=== PATIENT | female | born 2000 | race African-American/Black ===

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

== ENCOUNTER 2022-06-07 11:04 | Emergency (ER) | payer MEDICAID, OTHER ==
[~2022-06-07] VITALS: Ht 165.1 cm; Wt 89.0 kg
[~2022-06-07 11:04] MED LIST changes: -FOLI0.4T6 PO
[2022-06-07] MEDS ORDERED: ONDANSETRON HCL 4MG/2ML INJ IV STA (11:13)
[2022-06-07 11:15] VITALS: BP 116/60
[2022-06-07] MEDS ORDERED: SODIUM CHLORIDE 0.9% 1,000 ML IV ONE (11:15)
[2022-06-07 12:23] LABS: BASOPHILS % 0.7 % (0.0-2.0); EOSINOPHILS % 0.4 % (0.0-5.0); HEMATOCRIT. 55.1 % (36.0-48.0); HEMOGLOBIN. 18.8 g/dL (12.0-16.0); LYMPHOCYTES % 23.5 % (20.0-50.0); MEAN CORPUSCULAR HEMOGLOBIN 29.1 pg (28.0-32.0); MEAN CORPUSCULAR VOLUME 85.4 fL (81.0-99.0); MEAN PLATELET VOLUME 8.5 fl (7.4-10.4); MONOCYTES % 10.4 % (2.0-8.0); PLATELET 393 x1000/uL (130-400); RED BLOOD CELL COUNT 6.46 mill/uL (4.2-5.4); RED CELL DISTRIBUTION WIDTH 13.1 % (11.6-14.6)
[2022-06-07 12:53] LABS: CHLORIDE 99 mEq/L (98-107)
[2022-06-07 12:55] LABS: HCG SCREEN NEGATIVE
[2022-06-07 12:59] LABS: ETHANOL BLOOD < 10 mg/dL
[2022-06-07] MEDS ORDERED: IBUPROFEN 600MG TABLET PO ONE (15:00)
[2022-06-07 15:44] LABS: CLARITY URINE TURBID (CLEAR); COLOR URINE DARK YELLOW (YELLOW); KETONES URINE NEGATIVE (NEGATIVE); LEUKOCYTE ESTERASE URINE TRACE (NEGATIVE); NITRITE URINE NEGATIVE (NEGATIVE); OCCULT BLOOD URINE 2+ (NEGATIVE); PH URINE 6.5 (4.5-8.0); PROTEIN URINE 4+ (NEGATIVE); SPECIFIC GRAVITY URINE 1.079 (1.005-1.030)
[2022-06-07 15:56] LABS: *AMPHETAMINES SCREEN URINE NEGATIVE (NEGATIVE); *BARBITURATES SCREEN URINE NEGATIVE (NEGATIVE); *BENZODIAZEPINES SCREEN URINE NEGATIVE (NEGATIVE); *COCAINE SCREEN URINE NEGATIVE (NEGATIVE); METHADONE URINE SCREEN NEGATIVE (NEGATIVE); OPIATES URINE SCREEN NEGATIVE (NEGATIVE); PHENCYCLIDINE URINE SCREEN NEGATIVE (NEGATIVE)
[2022-06-07 15:57] LABS: CANNABINOID URINE SCREEN PRESUMTIVE POSITIVE (NEGATIVE)
[2022-06-07] MEDS ORDERED: ONDA4TAB50 MT (16:34)
== END 2022-06-07 17:42 | disposition home or self-care (01) ==
LOC: ER 11:04
DX: R05.1 Acute cough (principal); R53.1 Weakness; R42 Dizziness and giddiness; R11.2 Nausea with vomiting, unspecified
CPT/HCPCS: 36415; 80053; 80305; 80320; 81003; 81025; 83690; 84703; 85025; 99283; J7030; Z7610; J2405; G0480

== ENCOUNTER 2023-11-24 12:31 | Emergency (ER) | payer MEDICAID ==
[~2023-11-24] VITALS: Ht 165.1 cm; Wt 75.0 kg
[~2023-11-24 12:31] MED LIST changes: +ONDA4TAB50 MT
[2023-11-24 12:41] VITALS: BP 100/66; PULSE 54; RESP 16; TEMP 98.6; O2SAT 100
[2023-11-24 15:20] LABS: CARBON DIOXIDE 29 mEq/L (21-32); CHLORIDE 107 mEq/L (98-107); POTASSIUM 3.9 mEq/L (3.5-5.1); SODIUM 141 mEq/L (136-145)
[2023-11-24 15:21] LABS: CALCIUM 9.8 mg/dL (8.7-10.4); HEMATOCRIT 43.1 % (36.0-48.0); HEMOGLOBIN 14.4 g/dL (12.0-16.0); MEAN CORPUSCULAR HEMOGLOBIN 30.1 pg (28.0-32.0); MEAN CORPUSCULAR HGB CONC 33.5 g/dL (31.0-37.0); MEAN CORPUSCULAR VOLUME 89.8 fL (81.0-99.0); PLATELET 233 x1000/uL (130-400); WHITE BLOOD COUNT 4.3 x1000/uL (4.5-11.0)
[2023-11-24 15:26] LABS: GLUCOSE 89 mg/dL (70-105); UREA NITROGEN BLOOD 10 mg/dL (9-23)
[2023-11-24 15:31] LABS: HCG SCREEN NEGATIVE
== END 2023-11-24 16:24 | disposition home or self-care (01) ==
LOC: ER 12:31
DX: F41.9 Anxiety disorder, unspecified (principal); J45.909 Unspecified asthma, uncomplicated
CPT/HCPCS: 36415; 80048; 84703; 85027; 99283

== ENCOUNTER 2024-09-05 15:32 | Emergency (ER) | payer MEDICAID ==
[~2024-09-05] VITALS: Ht 165.1 cm; Wt 87.0 kg
[2024-09-05 15:41] VITALS: O2SAT 99
[2024-09-05 16:15] LABS: EOSINOPHILS % 4.2 % (0.0-5.0); HEMATOCRIT. 37.6 % (36.0-48.0); HEMOGLOBIN. 12.7 g/dL (12.0-16.0); LYMPHOCYTES % 32.7 % (20.0-50.0); MEAN CORPUSCULAR HEMOGLOBIN 29.5 pg (28.0-32.0); MEAN CORPUSCULAR HGB CONC 33.8 g/dL (31.0-37.0); MEAN CORPUSCULAR VOLUME 87.3 fL (81.0-99.0); MEAN PLATELET VOLUME 8.7 fl (7.4-10.4); MONOCYTES % 9.1 % (2.0-8.0); PLATELET 203 x1000/uL (130-400); RED CELL DISTRIBUTION WIDTH 14.3 % (11.6-14.6); WHITE BLOOD COUNT 7.6 x1000/uL (4.5-11.0)
[2024-09-05 16:23] LABS: CHLORIDE 105 mEq/L (98-107); POTASSIUM 3.5 mEq/L (3.5-5.1); SODIUM 136 mEq/L (136-145)
[2024-09-05 16:24] LABS: CARBON DIOXIDE 25 mEq/L (21-32)
[2024-09-05 16:25] LABS: CALCIUM 8.9 mg/dL (8.7-10.4)
[2024-09-05 16:29] LABS: CREATININE 0.8 mg/dL (0.6-1.0)
[2024-09-05 16:30] LABS: GLUCOSE 71 mg/dL (70-105); UREA NITROGEN BLOOD 6 mg/dL (9-23)
[2024-09-05 16:44] LABS: B-HCG QUANTITATIVE 136958 mIU/mL (<6)
[2024-09-05 18:35] LABS: CLARITY URINE CLEAR (CLEAR); COLOR URINE YELLOW (YELLOW); GLUCOSE URINE NEGATIVE (NEGATIVE); KETONES URINE NEGATIVE (NEGATIVE); LEUKOCYTE ESTERASE URINE NEGATIVE (NEGATIVE); NITRITE URINE NEGATIVE (NEGATIVE); OCCULT BLOOD URINE NEGATIVE (NEGATIVE); PROTEIN URINE NEGATIVE (NEGATIVE); UROBILINOGEN URINE 0.2 E.U./dL (0.2-1.0)
[2024-09-05] MEDS ORDERED: PNV1TABL76 PO (18:44)
[2024-09-05 19:00] VITALS: BP 100/68; PULSE 70; RESP 16; TEMP 36.7; O2SAT 99
== END 2024-09-05 19:01 | disposition home or self-care (01) ==
LOC: ER 15:32
DX: O26.891 Other specified pregnancy related conditions, first trimester (principal); O99.511 Diseases of the respiratory system complicating pregnancy, first trimester; J45.909 Unspecified asthma, uncomplicated; R10.9 Unspecified abdominal pain; Z3A.09 9 weeks gestation of pregnancy
CPT/HCPCS: 36415; 76801; 80048; 81003; 84702; 85025; 86850; 86900; 99284

== ENCOUNTER 2024-12-09 13:33 | Emergency (ER) | payer MEDICAID ==
[~2024-12-09] VITALS: Ht 165.1 cm; Wt 95.7 kg
[2024-12-09 13:36] VITALS: O2SAT 100
[2024-12-09 14:29] LABS: BASOPHILS % 0.7 % (0.0-2.0); EOSINOPHILS % 3.5 % (0.0-5.0); HEMATOCRIT. 39.3 % (36.0-48.0); HEMOGLOBIN. 13.1 g/dL (12.0-16.0); LYMPHOCYTES % 25.2 % (20.0-50.0); MEAN PLATELET VOLUME 9.3 fl (7.4-10.4); MONOCYTES % 7.7 % (2.0-8.0); NEUTROPHILS % 62.9 % (40.0-76.0); PLATELET 219 x1000/uL (130-400); RED BLOOD CELL COUNT 4.33 mill/uL (4.2-5.4); RED CELL DISTRIBUTION WIDTH 14.3 % (11.6-14.6)
[2024-12-09 14:43] LABS: CREATININE 0.7 mg/dL (0.6-1.0); UREA NITROGEN BLOOD < 5 mg/dL (9-23)
[2024-12-09 14:45] LABS: ASPARTATE AMINOTRANSFERASE 11 IU/L (<34); BILIRUBIN DIRECT 0.2 mg/dL (<=3.0)
[2024-12-09] MEDS: ONDANSETRON HCL 4MG/2ML INJ IV ONE (14:45)
[2024-12-09 14:46] LABS: BILIRUBIN TOTAL 0.6 mg/dL (0.1-1.0); PROTEIN TOTAL 6.7 g/dL (6.0-8.3)
[2024-12-09 15:03] LABS: B-HCG QUANTITATIVE 1742 mIU/mL (<6)
[2024-12-09 15:20] LABS: CLARITY URINE CLEAR (CLEAR); COLOR URINE YELLOW (YELLOW); GLUCOSE URINE NEGATIVE (NEGATIVE); KETONES URINE NEGATIVE (NEGATIVE); LEUKOCYTE ESTERASE URINE NEGATIVE (NEGATIVE); NITRITE URINE NEGATIVE (NEGATIVE); OCCULT BLOOD URINE NEGATIVE (NEGATIVE); PH URINE 7.0 (4.5-8.0); PROTEIN URINE NEGATIVE (NEGATIVE); SPECIFIC GRAVITY URINE 1.013 (1.005-1.030); UROBILINOGEN URINE 1.0 E.U./dL (0.2-1.0)
[2024-12-09 16:21] VITALS: BP 121/79; PULSE 86; RESP 18; TEMP 36.7; O2SAT 99
[2024-12-09] MEDS ORDERED: ONDA4TAB50 MT (16:26)
== END 2024-12-09 16:45 | disposition home or self-care (01) ==
LOC: ER 14:13
DX: O26.892 Other specified pregnancy related conditions, second trimester (principal); R10.30 Lower abdominal pain, unspecified; R10.2 Pelvic and perineal pain; Z3A.22 22 weeks gestation of pregnancy
CPT/HCPCS: 99285; 96374; 80076; 80048; 81003; 84702; 83690; 83735; 85025; 86850; 86900; 86901; 36415; 76815; J2405